=== PATIENT | female | born 1945 | race Caucasian/White ===

== ENCOUNTER 2025-01-17 14:21 | Emergency (ER) | payer MEDICARE, BC, SELFPAY ==
[2025-01-17 14:21] VITALS: BP 132/77; PULSE 108; RESP 22; TEMP 36.1; O2SAT 100; BMI 30.4
--- NOTE | 2025-01-17 14:35 | CT_ITS ---
PROCEDURE: BRAIN/HEAD WITHOUT CONTRAST 01/17/2025 REASON FOR EXAM: FALL TECHNIQUE: Procedure Code: CTBR Modality: CT Procedure: BRAIN/HEAD WITHOUT CONTRAST Coronal and Sagittal reconstruction series were provided. One or more dose reduction techniques were used (e.g., Automated exposure control, adjustment of the mA and/or kV according to patient size, use of iterative reconstruction technique. RADIATION DOSE SUMMARY: CTDlvol: 29 mGy DLP: 1864 mGycm FINDINGS: Normal brainstem. Normal cerebellum. Mild atrophy. No intracranial mass or hemorrhage. Prominent calcification along the anterior falx. Sinuses are clear. There is subcutaneous air from trauma and front of the nasal bones. See separate maxillofacial CT CT/Brain/Head without Contrast IMPRESSION: Negative for intracranial hemorrhage Reading [facility]
--- NOTE | 2025-01-17 14:35 | CT_ITS ---
PROCEDURE: SPINE CERVICAL WITHOUT CONTRAS 01/17/2025 REASON FOR EXAM: FALL TECHNIQUE: Procedure Code: CTSPC Modality: CT Procedure: SPINE CERVICAL WITHOUT CONTRAS Coronal and Sagittal reconstruction series were provided. One or more dose reduction techniques were used (e.g., Automated exposure control, adjustment of the mA and/or kV according to patient size, use of iterative reconstruction technique. RADIATION DOSE SUMMARY: CTDlvol: ? MGy DLP: ? MGycm FINDINGS: Normal cervical vertebral body height and alignment. There is no subluxation. There is no compression deformity. The occipital condyles and the skull base are unremarkable. C1 and C2 are normal. There is no soft tissue mass. No fractures identified of the occipital bone. Pedicles and lamina are maintained. The apex of the lungs are clear CT/Spine Cervical without Contras IMPRESSION: Negative for fracture Reading Location[facility]
--- NOTE | 2025-01-17 14:35 | CT_ITS ---
PROCEDURE: SINUS/FACIAL BONE 01/17/2025 REASON FOR EXAM: FALL TECHNIQUE: Procedure Code: CTSI Modality: CT Procedure: SINUS/FACIAL BONE Coronal and Sagittal reconstruction series were provided. One or more dose reduction techniques were used (e.g., Automated exposure control, adjustment of the mA and/or kV according to patient size, use of iterative reconstruction technique). RADIATION DOSE SUMMARY: CTDlvol: ? MGy DLP: ? MGycm FINDINGS: Mandible normal. Zygomatic arch is normal. Depressed fracture left nasal bone. No septal fracture. Medial and lateral orbital rosario grossly intact. Middle ear cavities and mastoid air cells clear. No visible soft tissue mass or orbital injury. Orbital floor maintained. CT/Sinus/Facial Bone IMPRESSION: Left nasal bone fracture Reading Location: [facility]
--- NOTE | 2025-01-17 14:36 | EX.ED.GENINJ ---
HPI History of Present Illness Chief Complaint: Fall Detail of Chief Complaint: Fall with head injury Informant: patient Narrative Narrative: Patient presents to the emergency department after a fall. She tripped on the sidewalk and fell forward striking her face on the concrete. No loss of consciousness. Sustained lacerations to her nose and facial abrasions. She complains of some neck pain but she states she had some neck pain before the fall because she thinks she slept wrong. Denies any numbness or tingling or weakness to the extremities. Denies other injuries. She has been ambulatory. She is up-to-date on tetanus. She is not anticoagulated other than aspirin. [facility] Home Medications ?Medication ?Instructions ?Recorded ?Last Taken ?Type cephalexin 500 mg capsule 500 mg PO Q6 #40 CAPSULES 01/17/25 Unknown Rx fluoxetine 10 mg capsule 10 mg PO DAILY 01/17/25 Unknown History furosemide 40 mg tablet 40 mg PO DAILY 01/17/25 Unknown History levothyroxine 150 mcg tablet 150 mcg PO DAILY 01/17/25 Unknown History losartan 50 mg tablet 50 mg PO BID 01/17/25 Unknown History potassium chloride 10 mEq 10 meq PO DAILY 01/17/25 Unknown History tablet,extended release simvastatin 40 mg tablet 40 mg PO QHS 01/17/25 Unknown History tirzepatide 7.5 mg/0.5 mL 7.5 mg subcut QWEEK 01/17/25 Unknown History subcutaneous pen injector (Mounjaro) Allergy/AdvReac Type Severity Reaction Status Date / Time ampicillin Allergy Mild Hives Verified 01/17/25 14:23 Family History no significant family his Surgical History H/O wrist surgery Surgical History no surgical history Social History Smoking Status: Former smoker ROS ROS ED Review of Systems ROS Unobtainable: other Constitutional Constitutional ED: Reports lethargy; Denies chills, fever(s), sweats or weight loss Eyes Eyes: Denies blurry vision, change in vision or diplopia ENT ENT ED: Reports other Details: Facial injuries with laceration to nose and forehead ; Denies rhinorrhea or sore throat Cardiovascular Cardiovascular: Denies chest pain, orthopnea or racing heartbeat Respiratory/Chest Respiratory/Chest: Denies cough, dyspnea, dyspnea on exertion, orthopnea or sputum Gastrointestinal Gastrointestinal: Denies abdominal pain, diarrhea, nausea or vomiting Genitourinary Genitourinary ED: Denies dysuria, hematuria or urinary frequency Musculoskeletal Musculoskeletal: Denies arthralgias, back pain, myalgias or neck pain Integumentary Denies abscess, Abrasions or rash Neurologic Neurologic: Denies headache(s) or weakness Psychiatric Psychiatric: Denies anxiety, depression or suicidal thoughts Endocrine Endocrinology: Denies polydipsia, polyphagia or polyuria Hematologic/Lymphatic Hematologic/Lymphatic: Denies easy bleeding, easy bruising or lymphadenopathy Allergic/Immunologic Allergic/Immunologic ED: Denies mouth swelling, tongue swelling or urticaria EXAM Physical Exam Const Vital Signs: 01/17/25 14:21 01/17/25 14:32 01/17/25 15:17 Temperature 97 F L 97 F L Temperature Source Temporal Pulse Rate 108 H 81 Respiratory Rate 22 H 16 Respiratory Effort Normal Non-Labored Respiratory Depth Normal Respiratory Pattern Normal Blood Pressure 132/77 H 147/66 H Blood Pressure Mean 95 93 Pulse Ox 100 100 Oxygen Delivery Method Room Air Nasal Cannula Positive well nourished and well developed General Appearance ED: well developed and NAD HEENT Reports TM's clear and moist mucous membranes HEENT Narrative: Evaluation of the nasal bone reveals some mild tenderness to palpation. She has a vertical laceration over the nasal bone measuring 1 cm and a semicircular laceration more superior measuring 1.5 cm. She has a 1 cm laceration just medial to the left eyebrow. No bony tenderness over the orbits. Extraocular muscle movement is painless and normal. Patient has no septal hematomas on exam and no active nasal bleeding. normocephalic and atraumatic; Negative for trauma or tenderness Tympanic Membrane ED: Yes TM's clear Eyes PERRL and EOMs intact bilaterally General Eye ED: Negative for pale conjunctiva or scleral icterus Neck no lymphadenopathy, supple and no JVD Neck Narrative: Mild diffuse tenderness. No bony step-offs or depressions. Good range of motion. General: tenderness Chest Wall inspection of chest normal and palpation of chest normal Chest: Negative for tenderness Resp normal respiratory effort and clear to auscultation bilaterally Effort and Inspection: Negative for respiratory distress or pain with movement Auscultation: Negative for rhonchi, wheezes or diminished lung sounds Cardio regular rate, regular rhythm, S1 normal heart sound, S2 normal heart sound and no murmurs Peripheral Pulses: pulses 2+ throughout GI normal to inspection, nondistended, normoactive bowel sounds, soft to palpation, non-tender, non-distended and no masses Back/Spine no CVA tenderness and no thoracic nor lumbar tenderness Extremity normal to inspection General Extremety ED: Negative for edema General Extremity: Negative for edema Neuro oriented x3, CN's II-XII intact bilaterally, no sensory deficits noted and gait normal Sensorium / Orientation: awake, alert, oriented to person, oriented to place and oriented to time Motor Exam: strength 5/5 throughout and strength abnormal Psych mental status grossly normal Skin no rashes or lesions noted and no wounds PROC Procedures Lacerations Nasal and forehead lacerations: Length: 1.38 in Depth: Sub Q Shape: Linear Prep: Adriana Laceration repair: Irrigated, Lidocaine and Local Irrigated (ml): 50 Number of Sutures/Ruth: 7 Suture Information: Ethilon, Simple and 6-0 MDM MDM MDM Narrative Medical decision making narrative: Patient presents after mechanical fall with injuries to her face. CT scan of the brain without contrast was obtained and was unremarkable. CT facial bones showed a left nasal bone fracture. CT of the C-spine showed no fractures. Please see procedure note for suture repair of nasal and forehead lacerations. Patient advised to follow-up with her primary care physician in 5 to 7 days for suture removal. She is advised to follow-up with the ENT back home given the nasal bone fracture. Given the laceration over the nasal bone fracture we will treat as an open fracture and treat with Keflex as well. Patient up-to-date on tetanus. Radiography Diagnostic Testing: Clinical Impression(s) from Imaging Studies Brain CT 01/17/25 14:35 IMPRESSION: Negative for intracranial hemorrhage Reading [facility] Cervical Spine CT 01/17/25 14:35 IMPRESSION: Negative for fracture Reading Location[facility] Facial/Sinus 01/17/25 14:35 IMPRESSION: Left nasal bone fracture Reading Location: [facility] Discharge Plan Triage Chief Complaint: Fall ED Provider: Erica Burrell Dx/Rx/DC Orders Clinical Impression: Fall, Closed head injury, Fracture, nasal bone, open, Face lacerations Instructions: ED Mechanical Fall, ED Nose Fracture, with X-Ray, ED Head Injury (Adult), ED Laceration, All Closures Prescriptions: New cephalexin 500 mg capsule 500 mg PO Q6 Qty: 40 0RF No Action losartan 50 mg tablet 50 mg PO BID furosemide 40 mg tablet 40 mg PO DAILY levothyroxine 150 mcg tablet 150 mcg PO DAILY fluoxetine 10 mg capsule 10 mg PO DAILY potassium chloride 10 mEq tablet extended release 10 meq PO DAILY simvastatin 40 mg tablet 40 mg PO QHS Mounjaro 7.5 mg/0.5 mL pen injector 7.5 mg subcut QWEEK Primary Care Provider: Care Physician,No Primary Referrals: Town Doctor,Out of [Non-Staff, Medical] Activity Restrictions/Additional Instructions: Follow-up with your family doctor for suture removal in 5 to 7 days. Follow-up with ear nose and throat physician regarding nasal bone fracture. Print Language: Ugandan Disposition Disposition: Home, Self Care
[2025-01-17] MEDS: Lidocaine 1% (20 ml mdv) 20 ML Vial 6 ML INFILT (15:14)
[2025-01-17 15:17] VITALS: BP 147/66; PULSE 81; RESP 16; TEMP 36.1; O2SAT 100
== END 2025-01-17 15:31 | disposition home or self-care (01) ==
PROVIDERS: Emergency Provider Emergency Medicine; Visit Provider Emergency Medicine
DX: S02.2XXB Fracture of nasal bones, initial encounter for open fracture (principal); S01.81XA Laceration without foreign body of other part of head, initial encounter; W18.09XA Striking against other object with subsequent fall, initial encounter; Z87.891 Personal history of nicotine dependence
CPT/HCPCS: 12013; 70450; 70486; 72125; 99283